=== PATIENT | female | born 1955 | race Native Hawaiian/Other Pacific Islander ===

== ENCOUNTER 2016-04-19 08:43 | Outpatient (CLI) | payer OTHER ==
[~2016-04-19 08:43] MED LIST: ACET5TAB36 PO; AMBIEN5 MG PO; ASPI-93 PO; B12 IJ; CIPRO500 MG PO; CLARITIN10 M1 PO; CYCL10TA35 PO; DEPO-ESTRADI5 MG/ML IM; DIAZ5TAB20 PO; DIAZEPAM5 MG PO; DICY20TA34 PO; FLOXIN OT; GLIM2TAB PO; HYDR4TAB12 PO; HYDR5TAB9 PO; LUNESTA3 MG OR; MAXIDE PO; METO50TA63 PO; METOPROLOL25 M1 PO; NEXIUM40 M1 OR; NEXIUM40 M1 PO; ONDA4TAB3 PO; OXYGEN NAS; PYRIDIUM100 MG PO; SCOP1.5D TD; SPIRIVA IN; TIOTCAP2 INH; TOPROL XL50 MG PO; XOPENEX HFA IN; XOPENEX1.25 MG/3 IN
== END 2016-04-19 21:26 | disposition home or self-care (01) ==
LOC: US 08:43
DX: K74.5 Biliary cirrhosis, unspecified (principal)

== ENCOUNTER 2016-06-26 16:41 | Outpatient (CLI) | payer OTHER | END 2016-06-26 19:18 | disposition home or self-care (01) | LOC: LABW 16:41 | DX: K74.69 Other cirrhosis of liver (principal) | CPT/HCPCS: 36415; 82140 ==

== ENCOUNTER 2017-04-09 12:03 | Inpatient (IN) | payer OTHER ==
[2017-04-09] VITALS (17 sets, daily range): BP systolic 86–124; BP diastolic 44–72; TEMP 97.7–98.9; Ht 165.1 cm; Wt 89.4 kg
[~2017-04-09] VITALS: Ht 165.1 cm; Wt 89.4 kg
[2017-04-09 12:40] LABS: PLATELET COUNT 129 K/uL (152-353)
[2017-04-09 13:16] LABS: PARTIAL THROMBOPLASTIN TIME 25.8 SECONDS (24.5-33.6)
[2017-04-09] MEDS ORDERED: MIRALAX3350 N1 OR ×2 (13:17)
[2017-04-09] MEDS ORDERED: FLONASE AL50 MCG/ACT ×2 (13:18)
[2017-04-09] MEDS ORDERED: POTASSIUM CHLO20 MEQ OR ×2 (13:19)
[2017-04-09] MEDS ORDERED: MORP10SO PO ×2 (13:20)
[2017-04-09] MEDS ORDERED: HALOPERIDOL2 MG PO ×2 (13:21)
[2017-04-09] MEDS ORDERED: FURO40TA93 PO ×2 (13:21)
[2017-04-09] MEDS ORDERED: LACTSYP31 PO ×2 (13:22)
[2017-04-09] MEDS ORDERED: ALBU0.5N13 IN ×2 (13:24)
[2017-04-10] VITALS (17 sets, daily range): BP systolic 65–131; BP diastolic 32–55; TEMP 98–98.8
[2017-04-10 03:21] LABS: PLATELET COUNT 125 K/uL (152-353)
[2017-04-10 05:42] LABS: POTASSIUM 2.8 mmol/L (3.6-5.2)
[2017-04-11 05:55] LABS: PLATELET COUNT 133 K/uL (152-353)
[2017-04-11 06:07] LABS: POTASSIUM 3.9 mmol/L (3.6-5.2)
[2017-04-11 12:00] VITALS: BP 92/39; TEMP 98
[2017-04-11 16:00] VITALS: BP 111/52; TEMP 98
[2017-04-11 20:00] VITALS: BP 130/56; TEMP 98.7
[2017-04-12] VITALS: BP 136/67; TEMP 99.1
[2017-04-12 04:00] VITALS: BP 96/40; TEMP 98.9
[2017-04-12 05:20] LABS: PLATELET COUNT 112 K/uL (152-353)
[2017-04-12 05:48] LABS: POTASSIUM 4.2 mmol/L (3.6-5.2)
[2017-04-12 08:00] VITALS: BP 99/52; TEMP 98.7
[2017-04-12 12:00] VITALS: BP 103/52; TEMP 98.5
== END 2017-04-12 14:05 | disposition home or self-care (01) | DRG 433 ==
LOC: ED 12:03 → ICU 14:30 → MED/SURG 04-10 21:45
PROVIDERS: Family Medicine; ADMIT Emergency Medicine
DX: K74.69 Other cirrhosis of liver (principal); E87.1 Hypo-osmolality and hyponatremia; K72.10 Chronic hepatic failure without coma; E11.649 Type 2 diabetes mellitus with hypoglycemia without coma; R40.4 Transient alteration of awareness; D64.89 Other specified anemias; J44.9 Chronic obstructive pulmonary disease, unspecified; J45.998 Other asthma; R94.8 Abnormal results of function studies of other organs and systems; Z91.81 History of falling; M54.2 Cervicalgia; K59.09 Other constipation; F41.8 Other specified anxiety disorders; G89.29 Other chronic pain
CPT/HCPCS: 36415; 51702; 80053; 80307; 80320; 81000; 82140; 82550; 82553; 82962; 83605; 83735; 84443; 84484; 85027; 85610; 85730; 93005; 94760; 96374; 96375; 99285; J2175; J2405

== ENCOUNTER 2017-04-15 09:58 | Inpatient (IN) | payer OTHER ==
[~2017-04-15 09:58] MED LIST changes: +ALBU0.5N13 IN; +FLONASE AL50 MCG/ACT; +FURO40TA93 PO; +HALOPERIDOL2 MG PO; +LACTSYP31 PO; +MIRALAX3350 N1 OR; +MORP10SO PO; +POTASSIUM CHLO20 MEQ OR
== END 2017-05-09 09:59 | disposition still patient (30) ==
LOC: PAVB 09:58
PROVIDERS: ADMIT Family Medicine

== ENCOUNTER 2017-04-15 19:01 | Outpatient (CLI) | payer OTHER | END 2017-04-15 20:44 | disposition home or self-care (01) | LOC: LAB 19:01 | DX: I10 Essential (primary) hypertension (principal); K70.30 Alcoholic cirrhosis of liver without ascites; E11.65 Type 2 diabetes mellitus with hyperglycemia; J44.9 Chronic obstructive pulmonary disease, unspecified; C16.2 Malignant neoplasm of body of stomach | CPT/HCPCS: 87081 ==

== ENCOUNTER 2017-04-16 06:17 | Outpatient (CLI) | payer OTHER | END 2017-04-16 19:02 | disposition home or self-care (01) | LOC: LAB 06:17 | DX: E11.9 Type 2 diabetes mellitus without complications (principal) | CPT/HCPCS: 83036 ==

== ENCOUNTER 2017-04-17 09:06 | Outpatient (CLI) | payer OTHER ==
[2017-04-17 09:34] LABS: PLATELET COUNT 119 K/uL (152-353)
[2017-04-17 09:46] LABS: POTASSIUM 3.3 mmol/L (3.6-5.2)
== END 2017-04-17 19:37 | disposition home or self-care (01) ==
LOC: LAB 09:06
PROVIDERS: Family Medicine
DX: I10 Essential (primary) hypertension (principal); K70.30 Alcoholic cirrhosis of liver without ascites; E11.65 Type 2 diabetes mellitus with hyperglycemia; J44.9 Chronic obstructive pulmonary disease, unspecified
CPT/HCPCS: 80053; 82140; 83036; 85027

== ENCOUNTER 2017-04-22 18:18 | Outpatient (CLI) | payer OTHER | END 2017-04-22 22:06 | disposition home or self-care (01) | LOC: LAB 18:18 | DX: K72.90 Hepatic failure, unspecified without coma (principal) | CPT/HCPCS: 36415; 82140 ==

== ENCOUNTER 2017-04-29 04:28 | Outpatient (CLI) | payer OTHER | END 2017-04-29 19:38 | disposition home or self-care (01) | LOC: LAB 04:28 | DX: K74.60 Unspecified cirrhosis of liver (principal) | CPT/HCPCS: 36415; 82140 ==

== ENCOUNTER 2017-05-09 11:03 | Inpatient (IN) | payer OTHER | END 2017-06-06 09:23 | disposition still patient (30) | LOC: PAVB 11:03 | PROVIDERS: ADMIT Family Medicine ==

== ENCOUNTER 2017-06-06 10:24 | Inpatient (IN) | payer OTHER | END 2017-07-07 08:00 | disposition still patient (30) | LOC: PAVB 10:24 | PROVIDERS: ADMIT Family Medicine ==

== ENCOUNTER 2017-06-15 12:37 | Outpatient (CLI) | payer OTHER | END 2017-06-15 21:12 | disposition home or self-care (01) | LOC: LAB 12:37 | DX: R30.0 Dysuria (principal); R35.0 Frequency of micturition | CPT/HCPCS: 81000; 87077; 87086; 87088; 87186 ==

== ENCOUNTER 2017-07-07 09:00 | Inpatient (IN) | payer OTHER | END 2017-08-06 09:08 | disposition still patient (30) | LOC: PAVB 09:00 | PROVIDERS: ADMIT Family Medicine ==

== ENCOUNTER 2017-08-06 10:07 | Inpatient (IN) | payer OTHER | END 2017-09-06 08:56 | disposition still patient (30) | LOC: PAVB 10:07 | PROVIDERS: ADMIT Family Medicine ==

== ENCOUNTER 2017-09-06 09:53 | Inpatient (IN) | payer OTHER ==
[~2017-09-06 09:53] MED LIST changes: +ALBU90AE13 INH; +GLIM4TAB PO; +METOPROLOL25 M1 OR; +NEXIUM20 M1 PO
== END 2017-10-06 15:02 | disposition still patient (30) ==
LOC: PAVB 09:53
PROVIDERS: ADMIT Family Medicine

== ENCOUNTER 2017-10-06 15:51 | Inpatient (IN) | payer OTHER | END 2017-11-06 08:00 | disposition still patient (30) | LOC: PAVB 15:51 | PROVIDERS: ADMIT Family Medicine ==

== ENCOUNTER 2017-10-11 07:40 | Outpatient (CLI) | payer OTHER | END 2017-10-11 19:04 | disposition home or self-care (01) | LOC: LAB 07:40 | DX: E11.9 Type 2 diabetes mellitus without complications (principal) | CPT/HCPCS: 82140; 83036 ==

== ENCOUNTER 2017-11-06 09:00 | Inpatient (IN) | payer OTHER | END 2017-12-07 10:21 | disposition still patient (30) | LOC: PAVB 09:00 | PROVIDERS: ADMIT Family Medicine ==

== ENCOUNTER 2017-11-12 05:44 | Outpatient (CLI) | payer OTHER | END 2017-11-12 19:01 | disposition home or self-care (01) | LOC: LAB 05:44 | DX: K74.60 Unspecified cirrhosis of liver (principal) | CPT/HCPCS: 36415; 82140 ==

== ENCOUNTER 2017-12-07 10:32 | Inpatient (IN) | payer OTHER | END 2018-01-06 09:37 | disposition still patient (30) | LOC: PAVB 10:32 | PROVIDERS: ADMIT Family Medicine ==

== ENCOUNTER 2017-12-12 05:38 | Outpatient (CLI) | payer OTHER | END 2017-12-12 23:15 | disposition home or self-care (01) | LOC: LAB 05:38 | DX: K74.60 Unspecified cirrhosis of liver (principal) | CPT/HCPCS: 36415; 82140 ==

== ENCOUNTER 2017-12-29 12:46 | Emergency (ER) | payer OTHER ==
[~2017-12-29] VITALS: Ht 165.1 cm; Wt 90.7 kg
[2017-12-29 12:46] VITALS: TEMP 98.6
[2017-12-29 17:45] VITALS: BP 140/61
== END 2017-12-29 17:45 ==
LOC: ED 12:46
PROC: 0T9B70Z Drainage of Bladder with Drainage Device, Via Natural or Artificial Opening (ICD-10-PCS; principal; 2017-12-29)
DX: S42.294A Other nondisplaced fracture of upper end of right humerus, initial encounter for closed fracture (principal); S02.2XXA Fracture of nasal bones, initial encounter for closed fracture; W01.0XXA Fall on same level from slipping, tripping and stumbling without subsequent striking against object, initial encounter; Y92.129 Unspecified place in nursing home as the place of occurrence of the external cause
CPT/HCPCS: 36415; 51702; 96374; 96375; 99284; J2175; J2405

== ENCOUNTER 2018-01-05 22:04 | Outpatient (CLI) | payer OTHER | END 2018-01-05 23:00 | disposition home or self-care (01) | LOC: RAD 22:04 | DX: S60.212A Contusion of left wrist, initial encounter (principal); S50.12XA Contusion of left forearm, initial encounter; S40.011A Contusion of right shoulder, initial encounter; W19.XXXA Unspecified fall, initial encounter; Y93.89 Activity, other specified; Y92.89 Other specified places as the place of occurrence of the external cause ==

== ENCOUNTER 2018-01-06 12:22 | Inpatient (IN) | payer OTHER | END 2018-02-06 08:51 | disposition still patient (30) | LOC: PAVB 12:22 | PROVIDERS: ADMIT Family Medicine ==

== ENCOUNTER 2018-01-12 14:07 | Outpatient (CLI) | payer OTHER | END 2018-01-12 19:48 | disposition home or self-care (01) | LOC: RAD 14:07 | DX: S42.201A Unspecified fracture of upper end of right humerus, initial encounter for closed fracture (principal); X58.XXXA Exposure to other specified factors, initial encounter; Y93.89 Activity, other specified; Y92.89 Other specified places as the place of occurrence of the external cause ==

== ENCOUNTER 2018-01-14 13:57 | Outpatient (CLI) | payer OTHER | END 2018-01-14 22:44 | disposition home or self-care (01) | LOC: LAB 13:57 | DX: R10.9 Unspecified abdominal pain (principal) | CPT/HCPCS: 81000 ==

== ENCOUNTER 2018-01-22 13:00 | Outpatient (CLI) | payer OTHER | END 2018-01-22 19:24 | disposition home or self-care (01) | LOC: RAD 13:00 | DX: M54.5 Low back pain (principal) ==

== ENCOUNTER 2018-01-29 15:30 | Outpatient (CLI) | payer OTHER | END 2018-01-29 21:01 | disposition home or self-care (01) | LOC: RAD 15:30 | DX: M85.80 Other specified disorders of bone density and structure, unspecified site (principal); S32.029A Unspecified fracture of second lumbar vertebra, initial encounter for closed fracture ==

== ENCOUNTER 2018-02-02 17:32 | Outpatient (CLI) | payer OTHER | END 2018-02-02 19:38 | disposition home or self-care (01) | LOC: RAD 17:32 | DX: S42.201A Unspecified fracture of upper end of right humerus, initial encounter for closed fracture (principal) ==

== ENCOUNTER 2018-02-06 09:17 | Inpatient (IN) | payer OTHER | END 2018-03-08 08:36 | disposition still patient (30) | LOC: PAVB 09:17 | PROVIDERS: ADMIT Family Medicine ==

== ENCOUNTER 2018-02-11 04:03 | Outpatient (CLI) | payer OTHER | END 2018-02-11 22:10 | disposition home or self-care (01) | LOC: LAB 04:03 | DX: K74.60 Unspecified cirrhosis of liver (principal) | CPT/HCPCS: 36415; 82140 ==

== ENCOUNTER 2018-03-08 08:48 | Inpatient (IN) | payer OTHER | END 2018-04-08 10:21 | disposition still patient (30) | LOC: PAVB 08:48 → PAVA 03-09 10:00 | PROVIDERS: ADMIT Family Medicine | CPT/HCPCS: 82140 ==

== ENCOUNTER 2018-03-14 04:20 | Outpatient (CLI) | payer OTHER | END 2018-03-14 22:49 | disposition home or self-care (01) | LOC: LAB 04:20 | DX: K74.60 Unspecified cirrhosis of liver (principal) ==

== ENCOUNTER 2018-04-08 10:54 | Inpatient (IN) | payer OTHER | END 2018-05-09 14:16 | disposition still patient (30) | LOC: PAVA 10:54 | PROVIDERS: ADMIT Family Medicine ==

== ENCOUNTER 2018-04-30 03:52 | Outpatient (CLI) | payer OTHER | END 2018-04-30 22:03 | disposition home or self-care (01) | LOC: LAB 03:52 | DX: K74.60 Unspecified cirrhosis of liver (principal); Z79.899 Other long term (current) drug therapy | CPT/HCPCS: 36415; 82140; 83036 ==

== ENCOUNTER 2018-05-03 03:22 | Outpatient (CLI) | payer OTHER | END 2018-05-03 19:28 | disposition home or self-care (01) | LOC: LAB 03:22 | DX: N39.0 Urinary tract infection, site not specified (principal); R30.0 Dysuria | CPT/HCPCS: 81000; 87077; 87086; 87088; 87185 ==

== ENCOUNTER 2018-05-08 08:46 | Outpatient (CLI) | payer OTHER | END 2018-05-08 23:16 | disposition home or self-care (01) | LOC: US 08:46 → MAMMO 10:00 → US 23:16 | DX: N63.20 Unspecified lump in the left breast, unspecified quadrant (principal); R14.0 Abdominal distension (gaseous) ==

== ENCOUNTER 2018-05-09 14:29 | Inpatient (IN) | payer OTHER ==
[2018-05-29] MEDS ORDERED: MYSOLINE50 MG PO (01:40)
[2018-05-29] MEDS ORDERED: TRAMADOL HYDROC50 MG PO (01:46)
[2018-05-29] MEDS ORDERED: VITAMIN C 500 M1 TAB PO (01:47)
[2018-05-29] MEDS ORDERED: CETI10TA PO (01:48)
[2018-05-29] MEDS ORDERED: XANAX XR1 MG PO (01:50)
[2018-05-29] MEDS ORDERED: HYDROXYZINE HYD25 MG PO (01:51)
[2018-05-29] MEDS ORDERED: DILAUDID8 MG PO (01:54)
== END 2018-06-06 09:14 | disposition still patient (30) ==
LOC: PAVA 14:29
PROVIDERS: ADMIT Family Medicine

== ENCOUNTER 2018-05-13 10:12 | Outpatient (CLI) | payer OTHER ==
[~2018-05-13] VITALS: Ht 30.5 cm; Wt 0.5 kg
== END 2018-05-13 19:47 | disposition home or self-care (01) ==
LOC: US 10:12
DX: N63.20 Unspecified lump in the left breast, unspecified quadrant (principal)

== ENCOUNTER 2018-05-15 04:52 | Outpatient (CLI) | payer OTHER | END 2018-05-15 22:19 | LOC: LAB 04:52 | DX: K74.60 Unspecified cirrhosis of liver (principal) | CPT/HCPCS: 82140 ==

== ENCOUNTER 2018-05-28 19:14 | Outpatient (CLI) | payer OTHER ==
[2018-05-28 20:26] LABS: PLATELET COUNT 92 K/uL (152-353)
[2018-05-28 20:45] LABS: POTASSIUM 3.3 mmol/L (3.6-5.2)
[2018-05-29] MEDS ORDERED: MYSOLINE50 MG PO (01:40)
[2018-05-29] MEDS ORDERED: TRAMADOL HYDROC50 MG PO (01:46)
[2018-05-29] MEDS ORDERED: VITAMIN C 500 M1 TAB PO (01:47)
[2018-05-29] MEDS ORDERED: CETI10TA PO (01:48)
[2018-05-29] MEDS ORDERED: XANAX XR1 MG PO (01:50)
[2018-05-29] MEDS ORDERED: HYDROXYZINE HYD25 MG PO (01:51)
[2018-05-29] MEDS ORDERED: DILAUDID8 MG PO (01:54)
== END 2018-05-28 23:59 | disposition home or self-care (01) ==
LOC: LAB 19:14
PROVIDERS: Family Medicine
DX: D64.9 Anemia, unspecified (principal); R05 Cough
CPT/HCPCS: 80053; 84439; 84443; 85027

== ENCOUNTER 2018-05-28 21:58 | Inpatient (IN) | payer OTHER ==
[~2018-05-28] VITALS: Ht 165.1 cm; Wt 84.1 kg
[2018-05-28 22:31] VITALS: BP 156/74; TEMP 98.6
[2018-05-29] MEDS ORDERED: MYSOLINE50 MG PO (01:40)
[2018-05-29] MEDS ORDERED: TRAMADOL HYDROC50 MG PO (01:46)
[2018-05-29] MEDS ORDERED: VITAMIN C 500 M1 TAB PO (01:47)
[2018-05-29] MEDS ORDERED: CETI10TA PO (01:48)
[2018-05-29] MEDS ORDERED: XANAX XR1 MG PO (01:50)
[2018-05-29] MEDS ORDERED: HYDROXYZINE HYD25 MG PO (01:51)
[2018-05-29] MEDS ORDERED: DILAUDID8 MG PO (01:54)
[2018-05-29 02:36] VITALS: BP 163/78; TEMP 97.9; Ht 165.1 cm; Wt 84.1 kg
[2018-05-29 04:17] VITALS: BP 163/79; TEMP 97.9
[2018-05-29 08:00] VITALS: BP 113/60; TEMP 99.8
[2018-05-29 12:00] VITALS: BP 130/66; TEMP 98.7
[2018-05-29 16:00] VITALS: BP 133/62; TEMP 98.2
[2018-05-29 20:23] VITALS: BP 117/57; TEMP 98.5
[2018-05-30 00:22] VITALS: BP 120/47; TEMP 98.3
[2018-05-30 04:00] VITALS: BP 140/64; TEMP 98.2
[2018-05-30 08:00] VITALS: BP 133/62; TEMP 98.1
[2018-05-30 12:00] VITALS: BP 132/64; TEMP 98.5
== END 2018-05-30 15:15 | DRG 638 ==
LOC: ED 21:58 → MED/SURG 22:50
PROVIDERS: ADMIT Family Medicine
DX: E11.65 Type 2 diabetes mellitus with hyperglycemia (principal); J44.0 Chronic obstructive pulmonary disease with (acute) lower respiratory infection; E86.0 Dehydration; I10 Essential (primary) hypertension; C50.919 Malignant neoplasm of unspecified site of unspecified female breast; J20.9 Acute bronchitis, unspecified; K74.69 Other cirrhosis of liver
CPT/HCPCS: 81002; 82947; 96360; 96372; 99284; J0696; J1815

== ENCOUNTER 2018-06-03 09:18 | Outpatient (CLI) | payer OTHER ==
[~2018-06-03 09:18] MED LIST changes: +CETI10TA PO; +DILAUDID8 MG PO; +HYDROXYZINE HYD25 MG PO; +MYSOLINE50 MG PO; +TRAMADOL HYDROC50 MG PO; +VITAMIN C 500 M1 TAB PO; +XANAX XR1 MG PO
== END 2018-06-03 19:23 | disposition home or self-care (01) ==
LOC: US 09:18
DX: R14.0 Abdominal distension (gaseous) (principal)

== ENCOUNTER 2018-06-06 09:46 | Inpatient (IN) | payer OTHER | END 2018-07-07 07:55 | disposition still patient (30) | LOC: PAVA 09:46 | PROVIDERS: ADMIT Family Medicine ==

== ENCOUNTER 2018-06-16 03:02 | Outpatient (CLI) | payer OTHER | END 2018-06-16 19:23 | disposition home or self-care (01) | LOC: LAB 03:02 | DX: K74.60 Unspecified cirrhosis of liver (principal) | CPT/HCPCS: 36415; 82140 ==

== ENCOUNTER 2018-07-07 08:32 | Inpatient (IN) | payer OTHER | END 2018-08-06 09:39 | disposition still patient (30) | LOC: PAVA 08:32 | PROVIDERS: ADMIT Family Medicine ==

== ENCOUNTER 2018-07-16 18:17 | Emergency (ER) | payer OTHER ==
[~2018-07-16] VITALS: Ht 165.1 cm; Wt 91.7 kg
[2018-07-16 19:42] LABS: PLATELET COUNT 126 K/uL (152-353)
[2018-07-16 19:59] LABS: POTASSIUM 3.3 mmol/L (3.6-5.2)
[2018-07-16 20:47] VITALS: BP 136/51; TEMP 98.8
== END 2018-07-16 20:45 | disposition home or self-care (01) ==
LOC: ED 18:17
PROVIDERS: Emergency Medicine
DX: E72.20 Disorder of urea cycle metabolism, unspecified (principal); Z98.890 Other specified postprocedural states
CPT/HCPCS: 36415; 80053; 82140; 85027; 96360; 99284

== ENCOUNTER 2018-08-03 22:10 | Outpatient (CLI) | payer OTHER ==
[2018-08-03 23:18] LABS: PLATELET COUNT 106 K/uL (152-353)
[2018-08-04 05:32] LABS: POTASSIUM 4.1 mmol/L (3.6-5.2)
== END 2018-08-03 23:30 | disposition home or self-care (01) ==
LOC: LAB 22:10
PROVIDERS: Family Medicine
DX: D64.89 Other specified anemias (principal); C79.9 Secondary malignant neoplasm of unspecified site
CPT/HCPCS: 36415; 80053; 82607; 82746; 83540; 85027; 85044

== ENCOUNTER 2018-08-06 04:27 | Outpatient (CLI) | payer OTHER | END 2018-08-06 23:14 | disposition home or self-care (01) | LOC: LAB 04:27 | DX: K74.69 Other cirrhosis of liver (principal) | CPT/HCPCS: 36415; 82140 ==

== ENCOUNTER 2018-08-06 10:51 | Inpatient (IN) | payer OTHER ==
[2018-08-19] MEDS ORDERED: LEVEMIR FL100 UNIT/M SC (17:55)
[2018-08-19] MEDS ORDERED: ALEN70TA19 PO (18:01)
[2018-08-19] MEDS ORDERED: MELATONIN10 M1 PO (18:06)
[2018-08-19] MEDS ORDERED: OMEP40CA PO (18:08)
[2018-08-19] MEDS ORDERED: CETI10TA PO (18:10)
[2018-08-19] MEDS ORDERED: FERROUS SULF325 M1 PO (18:12)
[2018-08-19] MEDS ORDERED: OXYC20TA3 PO (18:13)
[2018-08-19] MEDS ORDERED: PROAIR HFA108 MCG/AC PO (18:15)
[2018-08-19] MEDS ORDERED: ALPR0.5T24 PO (18:16)
[2018-08-19] MEDS ORDERED: ALBUTEROL2 MG/5 ML PO (18:23)
[2018-08-19] MEDS ORDERED: BANOPHEN25 M1 PO (18:24)
[2018-08-19] MEDS ORDERED: TUSSIN ADU100 MG/5 M PO (18:25)
[2018-08-19] MEDS ORDERED: HYDROMORPHONE H PO (18:27)
[2018-08-19] MEDS ORDERED: HYDROXYZINE HYD25 MG PO (18:28)
[2018-08-19] MEDS ORDERED: ALUMSUS6 PO (18:29)
[2018-08-19] MEDS ORDERED: ALBUSOL INH (18:30)
== END 2018-09-06 08:13 | disposition still patient (30) ==
LOC: PAVA 10:51
PROVIDERS: ADMIT Family Medicine
DX: Z51.89 Encounter for other specified aftercare (principal)

== ENCOUNTER 2018-08-19 15:05 | Inpatient (IN) | payer OTHER ==
[~2018-08-19] VITALS: Ht 165.1 cm; Wt 94.6 kg
[2018-08-19 17:08] VITALS: BP 152/76; TEMP 98.3; Ht 165.1 cm; Wt 94.6 kg
[2018-08-19 17:12] LABS: PLATELET COUNT 88 K/uL (152-353); POTASSIUM 3.9 mmol/L (3.6-5.2)
[2018-08-19] MEDS ORDERED: LEVEMIR FL100 UNIT/M SC (17:55)
[2018-08-19] MEDS ORDERED: ALEN70TA19 PO (18:01)
[2018-08-19] MEDS ORDERED: MELATONIN10 M1 PO (18:06)
[2018-08-19] MEDS ORDERED: OMEP40CA PO (18:08)
[2018-08-19] MEDS ORDERED: CETI10TA PO (18:10)
[2018-08-19] MEDS ORDERED: FERROUS SULF325 M1 PO (18:12)
[2018-08-19] MEDS ORDERED: OXYC20TA3 PO (18:13)
[2018-08-19] MEDS ORDERED: PROAIR HFA108 MCG/AC PO (18:15)
[2018-08-19] MEDS ORDERED: ALPR0.5T24 PO (18:16)
[2018-08-19] MEDS ORDERED: ALBUTEROL2 MG/5 ML PO (18:23)
[2018-08-19] MEDS ORDERED: BANOPHEN25 M1 PO (18:24)
[2018-08-19] MEDS ORDERED: TUSSIN ADU100 MG/5 M PO (18:25)
[2018-08-19] MEDS ORDERED: HYDROMORPHONE H PO (18:27)
[2018-08-19] MEDS ORDERED: HYDROXYZINE HYD25 MG PO (18:28)
[2018-08-19] MEDS ORDERED: ALUMSUS6 PO (18:29)
[2018-08-19] MEDS ORDERED: ALBUSOL INH (18:30)
[2018-08-19 20:00] VITALS: BP 132/49; TEMP 97.9
[2018-08-20] VITALS: BP 122/64; TEMP 98.5
[2018-08-20 04:00] VITALS: BP 122/50; TEMP 97.7
[2018-08-20 05:51] LABS: PLATELET COUNT 86 K/uL (152-353)
[2018-08-20 06:09] LABS: POTASSIUM 4.3 mmol/L (3.6-5.2)
[2018-08-20 08:00] VITALS: BP 99/59; TEMP 98.1
[2018-08-20 12:00] VITALS: BP 125/73; TEMP 98
[2018-08-20 16:00] VITALS: BP 137/62; TEMP 97.9
[2018-08-20 19:55] VITALS: BP 148/56; TEMP 98.1
[2018-08-21] VITALS (7 sets, daily range): BP systolic 96–145; BP diastolic 55–78; TEMP 98.1–98.4
[2018-08-21 04:45] LABS: PLATELET COUNT 83 K/uL (152-353)
[2018-08-21 04:58] LABS: POTASSIUM 4.2 mmol/L (3.6-5.2)
[2018-08-22 04:00] VITALS: BP 149/75; TEMP 98.4
[2018-08-22 08:00] VITALS: BP 138/50; TEMP 98.1
[2018-08-22 12:00] VITALS: BP 131/66; TEMP 98.6
== END 2018-08-22 17:30 | DRG 442 ==
LOC: MED/SURG 15:05
PROVIDERS: ADMIT Family Medicine
DX: K76.6 Portal hypertension (principal); N39.0 Urinary tract infection, site not specified; R10.11 Right upper quadrant pain; K76.0 Fatty (change of) liver, not elsewhere classified; D50.8 Other iron deficiency anemias; E11.9 Type 2 diabetes mellitus without complications; I10 Essential (primary) hypertension; C50.919 Malignant neoplasm of unspecified site of unspecified female breast; D69.6 Thrombocytopenia, unspecified; F41.8 Other specified anxiety disorders; J44.9 Chronic obstructive pulmonary disease, unspecified
CPT/HCPCS: 36415; 80053; 81000; 82140; 82150; 82728; 83540; 83690; 85027; 85610; 87086; 87088; 94760; J0696; J1170; J1200; J1815; J1885; J2060; J2405; J3410; J3490

== ENCOUNTER 2018-09-06 08:26 | Inpatient (IN) | payer OTHER ==
[~2018-09-06 08:26] MED LIST changes: +ALBUSOL INH; +ALBUTEROL2 MG/5 ML PO; +ALEN70TA19 PO; +ALPR0.5T24 PO; +ALUMSUS6 PO; +BANOPHEN25 M1 PO; +FERROUS SULF325 M1 PO; +HYDROMORPHONE H PO; +LEVEMIR FL100 UNIT/M SC; +MELATONIN10 M1 PO; +OMEP40CA PO; +OXYC20TA3 PO; +PROAIR HFA108 MCG/AC PO; +TUSSIN ADU100 MG/5 M PO
== END 2018-10-06 08:30 | disposition still patient (30) ==
LOC: PAVA 08:26
PROVIDERS: ADMIT Family Medicine

== ENCOUNTER 2018-09-08 05:09 | Outpatient (CLI) | payer OTHER | END 2018-09-08 19:08 | disposition home or self-care (01) | LOC: LAB 05:09 | DX: K74.69 Other cirrhosis of liver (principal) | CPT/HCPCS: 36415; 82140 ==

== ENCOUNTER 2018-09-12 18:02 | Outpatient (CLI) | payer OTHER | END 2018-09-12 21:44 | disposition home or self-care (01) | LOC: RAD 18:02 | DX: M25.551 Pain in right hip (principal); R07.81 Pleurodynia; Z91.81 History of falling ==

== ENCOUNTER 2018-09-29 03:29 | Outpatient (CLI) | payer OTHER ==
[2018-09-29 06:49] LABS: PLATELET COUNT 76 K/uL (152-353)
[2018-09-29 06:59] LABS: POTASSIUM 4.3 mmol/L (3.6-5.2)
== END 2018-09-29 23:20 | disposition home or self-care (01) ==
LOC: LAB 03:29
PROVIDERS: Family Medicine
DX: C50.312 Malignant neoplasm of lower-inner quadrant of left female breast (principal)
CPT/HCPCS: 36415; 80053; 85027; 85044

== ENCOUNTER 2018-10-06 04:22 | Outpatient (CLI) | payer OTHER | END 2018-10-06 23:31 | disposition home or self-care (01) | LOC: LAB 04:22 | DX: E11.9 Type 2 diabetes mellitus without complications (principal); K74.69 Other cirrhosis of liver | CPT/HCPCS: 36415; 82140; 83036 ==

== ENCOUNTER 2018-10-06 09:15 | Inpatient (IN) | payer OTHER | END 2018-11-06 09:07 | disposition still patient (30) | LOC: PAVA 09:15 | PROVIDERS: ADMIT Family Medicine ==

== ENCOUNTER 2018-10-09 18:04 | Outpatient (CLI) | payer OTHER | END 2018-10-09 19:48 | disposition home or self-care (01) | LOC: LAB 18:04 | DX: N39.0 Urinary tract infection, site not specified (principal) | CPT/HCPCS: 81000; 87077; 87086; 87088; 87185; 87186 ==

== ENCOUNTER 2018-11-06 04:53 | Outpatient (CLI) | payer OTHER | END 2018-11-06 20:13 | disposition home or self-care (01) | LOC: LAB 04:53 | DX: K74.69 Other cirrhosis of liver (principal) | CPT/HCPCS: 82140 ==

== ENCOUNTER 2018-11-06 10:05 | Inpatient (IN) | payer OTHER | END 2018-12-07 15:58 | disposition still patient (30) | LOC: PAVA 10:05 | PROVIDERS: ADMIT Family Medicine ==

== ENCOUNTER 2018-12-07 16:11 | Inpatient (IN) | payer OTHER | END 2019-01-06 08:05 | disposition still patient (30) | LOC: PAVA 16:11 | PROVIDERS: ADMIT Family Medicine ==

== ENCOUNTER 2018-12-09 05:48 | Outpatient (CLI) | payer OTHER | END 2018-12-09 22:47 | disposition home or self-care (01) | LOC: LAB 05:48 | DX: K74.69 Other cirrhosis of liver (principal) | CPT/HCPCS: 82140 ==

== ENCOUNTER 2018-12-31 14:18 | Outpatient (CLI) | payer OTHER | END 2018-12-31 20:34 | disposition home or self-care (01) | LOC: RAD 14:18 | DX: R09.1 Pleurisy (principal) ==

== ENCOUNTER 2019-01-06 09:10 | Inpatient (IN) | payer OTHER | END 2019-02-06 08:58 | disposition still patient (30) | LOC: PAVA 09:10 | PROVIDERS: ADMIT Family Medicine ==

== ENCOUNTER 2019-01-07 05:37 | Outpatient (CLI) | payer OTHER ==
[2019-01-07 06:05] LABS: PLATELET COUNT 106 K/uL (152-353)
[2019-01-07 06:51] LABS: POTASSIUM 4.2 mmol/L (3.6-5.2)
== END 2019-01-07 23:46 | disposition home or self-care (01) ==
LOC: LAB 05:37
PROVIDERS: Family Medicine
DX: K74.69 Other cirrhosis of liver (principal); E11.9 Type 2 diabetes mellitus without complications
CPT/HCPCS: 80053; 82140; 83036; 84439; 84443; 84550; 85027

== ENCOUNTER 2019-01-21 14:15 | Outpatient (CLI) | payer OTHER | END 2019-01-21 19:12 | disposition home or self-care (01) | LOC: LAB 14:15 | DX: R30.0 Dysuria (principal) | CPT/HCPCS: 81000; 87077; 87086; 87088; 87185; 87186 ==

== ENCOUNTER 2019-01-30 17:52 | Outpatient (CLI) | payer OTHER | END 2019-01-30 21:49 | disposition home or self-care (01) | LOC: LAB 17:52 | DX: R82.998 Other abnormal findings in urine (principal) | CPT/HCPCS: 81000 ==

== ENCOUNTER 2019-02-06 05:47 | Outpatient (CLI) | payer OTHER | END 2019-02-06 22:10 | disposition home or self-care (01) | LOC: LAB 05:47 | DX: K74.69 Other cirrhosis of liver (principal) | CPT/HCPCS: 82140 ==

== ENCOUNTER 2019-02-06 10:56 | Inpatient (IN) | payer OTHER | END 2019-03-08 08:00 | disposition still patient (30) | LOC: PAVA 10:56 | PROVIDERS: ADMIT Family Medicine ==

== ENCOUNTER 2019-03-08 09:00 | Inpatient (IN) | payer OTHER | END 2019-04-08 07:59 | disposition still patient (30) | LOC: PAVA 09:00 | PROVIDERS: ADMIT Family Medicine | CPT/HCPCS: 81000 ==

== ENCOUNTER 2019-03-10 05:56 | Outpatient (CLI) | payer OTHER | END 2019-03-10 20:13 | disposition home or self-care (01) | LOC: LAB 05:56 | DX: K74.69 Other cirrhosis of liver (principal) | CPT/HCPCS: 82140 ==

== ENCOUNTER 2019-03-22 12:53 | Outpatient (CLI) | payer OTHER | END 2019-03-22 21:08 | disposition home or self-care (01) | LOC: LABW | DX: R82.998 Other abnormal findings in urine (principal) ==

== ENCOUNTER 2019-03-23 06:56 | Outpatient (CLI) | payer OTHER | END 2019-03-23 22:52 | disposition home or self-care (01) | LOC: LAB 06:56 | DX: K72.90 Hepatic failure, unspecified without coma (principal); K74.69 Other cirrhosis of liver; E11.9 Type 2 diabetes mellitus without complications; H81.09 Meniere's disease, unspecified ear; R82.998 Other abnormal findings in urine | CPT/HCPCS: 36415; 82140 ==

== ENCOUNTER 2019-04-08 06:03 | Outpatient (CLI) | payer OTHER | END 2019-04-08 22:01 | disposition home or self-care (01) | LOC: LAB 06:03 | DX: K74.69 Other cirrhosis of liver (principal); E11.9 Type 2 diabetes mellitus without complications | CPT/HCPCS: 36415; 82140 ==

== ENCOUNTER 2019-04-08 08:25 | Inpatient (IN) | payer OTHER | END 2019-05-09 09:31 | disposition still patient (30) | LOC: PAVA 08:25 | PROVIDERS: ADMIT Family Medicine ==

== ENCOUNTER 2019-04-09 06:52 | Outpatient (CLI) | payer OTHER | END 2019-04-09 19:40 | disposition home or self-care (01) | LOC: LAB 06:52 | DX: E11.9 Type 2 diabetes mellitus without complications (principal) | CPT/HCPCS: 83036 ==

== ENCOUNTER 2019-05-09 06:06 | Outpatient (CLI) | payer OTHER | END 2019-05-09 20:38 | disposition home or self-care (01) | LOC: LAB 06:06 | DX: K74.69 Other cirrhosis of liver (principal) | CPT/HCPCS: 82140 ==

== ENCOUNTER 2019-05-09 09:46 | Inpatient (IN) | payer OTHER | END 2019-06-07 12:45 | disposition still patient (30) | LOC: PAVA 09:46 | PROVIDERS: ADMIT Family Medicine ==

== ENCOUNTER 2019-06-07 13:01 | Inpatient (IN) | payer OTHER | END 2019-07-08 08:58 | disposition still patient (30) | LOC: PAVA 13:01 | PROVIDERS: ADMIT Family Medicine ==

== ENCOUNTER 2019-06-09 05:04 | Outpatient (CLI) | payer OTHER | END 2019-06-09 19:32 | disposition home or self-care (01) | LOC: LAB 05:04 | DX: K74.69 Other cirrhosis of liver (principal) | CPT/HCPCS: 82140 ==

== ENCOUNTER 2019-07-08 09:21 | Inpatient (IN) | payer OTHER | END 2019-08-07 08:03 | disposition still patient (30) | LOC: PAVA 09:21 | PROVIDERS: ADMIT Family Medicine ==

== ENCOUNTER 2019-07-10 06:14 | Outpatient (CLI) | payer OTHER ==
[2019-07-10 08:18] LABS: PLATELET COUNT 61 K/uL (152-353)
[2019-07-10 08:35] LABS: POTASSIUM 4.4 mmol/L (3.6-5.2)
== END 2019-07-10 23:29 | disposition home or self-care (01) ==
LOC: LAB 06:14
PROVIDERS: Family Medicine
DX: K74.69 Other cirrhosis of liver (principal); E11.9 Type 2 diabetes mellitus without complications; I10 Essential (primary) hypertension
CPT/HCPCS: 80053; 80061; 82140; 83036; 84439; 84443; 84550; 85027

== ENCOUNTER 2019-07-14 13:53 | Outpatient (CLI) | payer OTHER | END 2019-07-14 19:11 | disposition home or self-care (01) | LOC: LABW 13:53 | DX: R05 Cough (principal); R50.9 Fever, unspecified | CPT/HCPCS: 87502; 87635; U0002 ==

== ENCOUNTER → 2019-07-14 | Outpatient (CLI) | payer OTHER | LOC: LAB 22:05 | DX: N39.0 Urinary tract infection, site not specified (principal) | CPT/HCPCS: 81000; 87086; 87088 ==

== ENCOUNTER 2019-08-07 08:39 | Inpatient (IN) | payer OTHER | END 2019-09-07 08:11 | disposition still patient (30) | LOC: PAVA 08:39 | PROVIDERS: ADMIT Family Medicine | CPT/HCPCS: 87635; U0002 ==

== ENCOUNTER 2019-08-10 06:19 | Outpatient (CLI) | payer OTHER | END 2019-08-10 19:21 | disposition home or self-care (01) | LOC: LAB 06:19 | DX: K74.69 Other cirrhosis of liver (principal) | CPT/HCPCS: 82140 ==

== ENCOUNTER 2019-08-24 17:02 | Outpatient (CLI) | payer OTHER | END 2019-08-24 19:45 | disposition home or self-care (01) | LOC: RAD 17:02 | DX: M79.602 Pain in left arm (principal) ==

== ENCOUNTER 2019-08-24 19:10 | Emergency (ER) | payer OTHER ==
[~2019-08-24] VITALS: Ht 165.1 cm; Wt 94.3 kg
[2019-08-24 19:45] LABS: PLATELET COUNT 58 K/uL (152-353)
[2019-08-24 19:55] LABS: POTASSIUM 3.9 mmol/L (3.6-5.2)
[2019-08-24 21:35] VITALS: BP 140/80; TEMP 99.1
== END 2019-08-24 21:45 | disposition short-term general hospital (02) ==
LOC: ED 19:16
PROVIDERS: Family Medicine
PROC: 0T9B70Z Drainage of Bladder with Drainage Device, Via Natural or Artificial Opening (ICD-10-PCS; principal; 2019-08-24)
DX: S42.392A Other fracture of shaft of left humerus, initial encounter for closed fracture (principal); E11.9 Type 2 diabetes mellitus without complications; Z79.4 Long term (current) use of insulin; Z79.899 Other long term (current) drug therapy; W18.39XA Other fall on same level, initial encounter; Y92.128 Other place in nursing home as the place of occurrence of the external cause
CPT/HCPCS: 51702; 80053; 81000; 83036; 85027; 85610; 87077; 87086; 87088; 87186; 99283

== ENCOUNTER 2019-09-07 08:26 | Inpatient (IN) | payer OTHER | END 2019-10-07 08:26 | disposition still patient (30) | LOC: PAVA 08:26 | PROVIDERS: ADMIT Family Medicine | DX: S42.352D Displaced comminuted fracture of shaft of humerus, left arm, subsequent encounter for fracture with routine healing (principal); M62.81 Muscle weakness (generalized); R26.2 Difficulty in walking, not elsewhere classified; Z74.1 Need for assistance with personal care; D69.6 Thrombocytopenia, unspecified; H81.09 Meniere's disease, unspecified ear; M19.90 Unspecified osteoarthritis, unspecified site; K74.60 Unspecified cirrhosis of liver | CPT/HCPCS: 83630; 87015; 87045; 87324; 87328; 87329; 87449; 87635; 87899; U0002 ==

== ENCOUNTER 2019-10-07 09:38 | Inpatient (IN) | payer OTHER | END 2019-11-07 08:23 | disposition still patient (30) | LOC: PAVA 09:38 | PROVIDERS: ADMIT Family Medicine | DX: S42.352D Displaced comminuted fracture of shaft of humerus, left arm, subsequent encounter for fracture with routine healing (principal); M62.81 Muscle weakness (generalized); R26.2 Difficulty in walking, not elsewhere classified; Z74.1 Need for assistance with personal care; D69.6 Thrombocytopenia, unspecified; H81.09 Meniere's disease, unspecified ear; M19.90 Unspecified osteoarthritis, unspecified site; K74.60 Unspecified cirrhosis of liver | CPT/HCPCS: 82140; 82306; 83036 ==

== ENCOUNTER 2019-10-08 17:11 | Outpatient (CLI) | payer OTHER | END 2019-10-08 20:49 | disposition home or self-care (01) | LOC: LAB 17:11 | DX: E72.29 Other disorders of urea cycle metabolism (principal); E55.9 Vitamin D deficiency, unspecified | CPT/HCPCS: 82140; 82306 ==

== ENCOUNTER 2019-10-12 12:23 | Emergency (ER) | payer OTHER ==
[~2019-10-12] VITALS: Ht 165.1 cm; Wt 94.3 kg
[2019-10-12 14:25] LABS: PLATELET COUNT 183 K/uL (152-353)
[2019-10-12 14:34] LABS: PARTIAL THROMBOPLASTIN TIME 25.4 SECONDS (24.5-33.6)
[2019-10-12 14:36] LABS: POTASSIUM 4.1 mmol/L (3.6-5.2)
[2019-10-12 18:13] VITALS: BP 128/65; TEMP 98.7
== END 2019-10-12 18:13 ==
LOC: ED 12:23
PROVIDERS: General Practice
DX: R10.84 Generalized abdominal pain (principal); M79.602 Pain in left arm; Z98.890 Other specified postprocedural states
CPT/HCPCS: 36415; 80053; 81000; 83735; 85027; 85610; 85730; 96360; 99284

== ENCOUNTER 2019-11-07 08:54 | Inpatient (IN) | payer OTHER | END 2019-12-08 10:50 | disposition still patient (30) | LOC: PAVA 08:54 | PROVIDERS: ADMIT Family Medicine | DX: Z47.89 Encounter for other orthopedic aftercare (principal); S42.352D Displaced comminuted fracture of shaft of humerus, left arm, subsequent encounter for fracture with routine healing; R26.89 Other abnormalities of gait and mobility; M62.81 Muscle weakness (generalized); E11.36 Type 2 diabetes mellitus with diabetic cataract; E11.65 Type 2 diabetes mellitus with hyperglycemia; K74.60 Unspecified cirrhosis of liver; G47.00 Insomnia, unspecified; F41.9 Anxiety disorder, unspecified | CPT/HCPCS: 87635; U0003 ==

== ENCOUNTER 2019-11-09 08:10 | Outpatient (CLI) | payer OTHER | END 2019-11-09 22:34 | disposition home or self-care (01) | LOC: LAB 08:10 | DX: K74.69 Other cirrhosis of liver (principal) | CPT/HCPCS: 82140 ==

== ENCOUNTER 2019-11-17 16:32 | Outpatient (CLI) | payer OTHER | END 2019-11-17 21:01 | disposition home or self-care (01) | LOC: RAD 16:32 | DX: M79.602 Pain in left arm (principal) ==

== ENCOUNTER 2019-11-21 13:37 | Outpatient (CLI) | payer OTHER | END 2019-11-21 18:51 | disposition home or self-care (01) | LOC: RAD 13:37 | DX: R07.81 Pleurodynia (principal); M79.602 Pain in left arm ==

== ENCOUNTER 2019-11-27 18:31 | Outpatient (CLI) | payer OTHER ==
[2019-11-27 18:51] LABS: PLATELET COUNT 112 K/uL (152-353)
[2019-11-27 18:57] LABS: POTASSIUM 4.3 mmol/L (3.6-5.2)
== END 2019-11-27 23:59 | disposition home or self-care (01) ==
LOC: LABW 18:31
PROVIDERS: Family Medicine
DX: R68.89 Other general symptoms and signs (principal); R79.89 Other specified abnormal findings of blood chemistry; B95.62 Methicillin resistant Staphylococcus aureus infection as the cause of diseases classified elsewhere; K74.69 Other cirrhosis of liver
CPT/HCPCS: 80048; 85027; 85610; 85730; 87070

== ENCOUNTER 2019-12-08 11:23 | Inpatient (IN) | payer OTHER ==
[2019-12-08 06:48] LABS: PLATELET COUNT 92 K/uL (152-353)
== END 2020-01-07 09:33 | disposition still patient (30) ==
LOC: PAVA 11:23
PROVIDERS: ADMIT Family Medicine
DX: Z47.89 Encounter for other orthopedic aftercare (principal); S42.352D Displaced comminuted fracture of shaft of humerus, left arm, subsequent encounter for fracture with routine healing; R26.89 Other abnormalities of gait and mobility; M62.81 Muscle weakness (generalized); E11.36 Type 2 diabetes mellitus with diabetic cataract; E11.65 Type 2 diabetes mellitus with hyperglycemia; K74.60 Unspecified cirrhosis of liver; G47.00 Insomnia, unspecified; F41.9 Anxiety disorder, unspecified
CPT/HCPCS: 82140; 85027

== ENCOUNTER 2019-12-15 06:36 | Outpatient (CLI) | payer OTHER ==
[2019-12-15 06:51] LABS: PLATELET COUNT 118 K/uL (152-353)
== END 2019-12-15 19:18 | disposition home or self-care (01) ==
LOC: LAB 06:36
PROVIDERS: Family Medicine
DX: Z79.899 Other long term (current) drug therapy (principal)
CPT/HCPCS: 85027

== ENCOUNTER 2019-12-22 08:56 | Outpatient (CLI) | payer OTHER ==
[2019-12-22 10:10] LABS: PLATELET COUNT 100 K/uL (152-353)
== END 2019-12-22 19:05 | disposition home or self-care (01) ==
LOC: LAB 08:56 → RAD 08:56 → LAB 19:05
PROVIDERS: Orthopaedic Surgery
DX: M79.602 Pain in left arm (principal)
CPT/HCPCS: 85027

== ENCOUNTER 2019-12-29 07:47 | Outpatient (CLI) | payer OTHER ==
[2019-12-29 08:25] LABS: PLATELET COUNT 98 K/uL (152-353)
== END 2019-12-29 20:21 | disposition home or self-care (01) ==
LOC: LAB 07:47
PROVIDERS: Family Medicine
DX: Z79.899 Other long term (current) drug therapy (principal)
CPT/HCPCS: 85027

== ENCOUNTER 2020-01-05 07:57 | Outpatient (CLI) | payer OTHER ==
[2020-01-05 09:59] LABS: PLATELET COUNT 104 K/uL (152-353)
== END 2020-01-05 19:26 | disposition home or self-care (01) ==
LOC: LAB 07:57
PROVIDERS: Family Medicine
DX: D64.89 Other specified anemias (principal)
CPT/HCPCS: 85027

== ENCOUNTER 2020-01-07 07:32 | Outpatient (CLI) | payer OTHER ==
[2020-01-07 08:21] LABS: PLATELET COUNT 81 K/uL (152-353)
[2020-01-07 08:47] LABS: POTASSIUM 4.1 mmol/L (3.6-5.2)
== END 2020-01-07 19:38 | disposition home or self-care (01) ==
LOC: LAB 07:32
PROVIDERS: Family Medicine
DX: E11.9 Type 2 diabetes mellitus without complications (principal); K74.69 Other cirrhosis of liver; I10 Essential (primary) hypertension; E55.9 Vitamin D deficiency, unspecified
CPT/HCPCS: 80053; 82140; 82306; 83036; 84439; 84443; 84550; 85007; 85027

== ENCOUNTER 2020-01-07 10:50 | Inpatient (IN) | payer OTHER ==
[2020-01-13] MEDS ORDERED: DOXEPIN HCL100 MG PO (08:17)
[2020-01-13] MEDS ORDERED: FURO20TA67 PO ×2 (10:13→10:14)
[2020-01-13] MEDS ORDERED: MV-ONE PO (10:17)
[2020-01-13] MEDS ORDERED: ROPINIROLE0.25 MG PO (10:24)
[2020-01-13] MEDS ORDERED: ZINC220 MG PO (10:25)
[2020-01-13] MEDS ORDERED: CETI10TA PO (10:27)
[2020-01-13] MEDS ORDERED: SPIR50TA8 PO (10:33)
[2020-01-13] MEDS ORDERED: LEVEMIR FL100 UNIT/M SC (11:36)
[2020-01-13] MEDS ORDERED: LACTULOSE10 GM/15 M PO (11:40)
[2020-01-13] MEDS ORDERED: NEURONTIN 100M100 MG PO (11:42)
[2020-01-13] MEDS ORDERED: IPRAAER INH (11:43)
[2020-01-13] MEDS ORDERED: OXYC5TAB24 PO (11:47)
== END 2020-02-07 08:00 | disposition still patient (30) ==
LOC: PAVA 10:50
PROVIDERS: ADMIT Family Medicine

== ENCOUNTER 2020-01-12 11:23 | Outpatient (CLI) | payer OTHER ==
[2020-01-12 11:41] LABS: PLATELET COUNT 88 K/uL (152-353)
[2020-01-13] MEDS ORDERED: DOXEPIN HCL100 MG PO (08:17)
[2020-01-13] MEDS ORDERED: FURO20TA67 PO ×2 (10:13→10:14)
[2020-01-13] MEDS ORDERED: MV-ONE PO (10:17)
[2020-01-13] MEDS ORDERED: ROPINIROLE0.25 MG PO (10:24)
[2020-01-13] MEDS ORDERED: ZINC220 MG PO (10:25)
[2020-01-13] MEDS ORDERED: CETI10TA PO (10:27)
[2020-01-13] MEDS ORDERED: SPIR50TA8 PO (10:33)
[2020-01-13] MEDS ORDERED: LEVEMIR FL100 UNIT/M SC (11:36)
[2020-01-13] MEDS ORDERED: LACTULOSE10 GM/15 M PO (11:40)
[2020-01-13] MEDS ORDERED: NEURONTIN 100M100 MG PO (11:42)
[2020-01-13] MEDS ORDERED: IPRAAER INH (11:43)
[2020-01-13] MEDS ORDERED: OXYC5TAB24 PO (11:47)
== END 2020-01-13 00:41 | disposition home or self-care (01) ==
LOC: LAB 11:23
PROVIDERS: Family Medicine
DX: D64.89 Other specified anemias (principal)
CPT/HCPCS: 85027

== ENCOUNTER 2020-01-12 20:39 | Inpatient (IN) | payer OTHER ==
[~2020-01-12] VITALS: Ht 177.8 cm; Wt 93.0 kg
[2020-01-12 21:12] VITALS: BP 131/74; TEMP 98.7
[2020-01-12 21:35] LABS: PLATELET COUNT 103 K/uL (152-353)
[2020-01-12 21:43] LABS: SODIUM 131 mmol/L (136-145)
[2020-01-12 21:47] LABS: PARTIAL THROMBOPLASTIN TIME 20.6 SECONDS (24.5-33.6)
[2020-01-12 22:00] VITALS: BP 130/70
[2020-01-12 23:00] VITALS: BP 121/61
[2020-01-13] VITALS (20 sets, daily range): BP systolic 104–159; BP diastolic 48–96; TEMP 97.5–99; Ht 177.8 cm; Wt 93.0 kg
[2020-01-13 07:53] LABS: PLATELET COUNT 84 K/uL (152-353)
[2020-01-13] MEDS ORDERED: DOXEPIN HCL100 MG PO (08:17)
[2020-01-13 08:23] LABS: POTASSIUM 3.7 mmol/L (3.6-5.2)
[2020-01-13] MEDS ORDERED: FURO20TA67 PO ×2 (10:13→10:14)
[2020-01-13] MEDS ORDERED: MV-ONE PO (10:17)
[2020-01-13] MEDS ORDERED: ROPINIROLE0.25 MG PO (10:24)
[2020-01-13] MEDS ORDERED: ZINC220 MG PO (10:25)
[2020-01-13] MEDS ORDERED: CETI10TA PO (10:27)
[2020-01-13] MEDS ORDERED: SPIR50TA8 PO (10:33)
[2020-01-13] MEDS ORDERED: LEVEMIR FL100 UNIT/M SC (11:36)
[2020-01-13] MEDS ORDERED: LACTULOSE10 GM/15 M PO (11:40)
[2020-01-13] MEDS ORDERED: NEURONTIN 100M100 MG PO (11:42)
[2020-01-13] MEDS ORDERED: IPRAAER INH (11:43)
[2020-01-13] MEDS ORDERED: OXYC5TAB24 PO (11:47)
[2020-01-14] VITALS (8 sets, daily range): BP systolic 101–136; BP diastolic 45–66; TEMP 98.9–99.6
[2020-01-14 06:43] LABS: PLATELET COUNT 91 K/uL (152-353)
[2020-01-14 06:54] LABS: POTASSIUM 3.6 mmol/L (3.6-5.2)
== END 2020-01-14 11:00 | DRG 443 ==
LOC: ED 20:39 → ICU 01-13 03:15
PROVIDERS: Family Medicine; ADMIT Internal Medicine Endocrinology, Diabetes & Metabolism
DX: K72.90 Hepatic failure, unspecified without coma (principal); D75.89 Other specified diseases of blood and blood-forming organs; E11.9 Type 2 diabetes mellitus without complications; J44.9 Chronic obstructive pulmonary disease, unspecified; I10 Essential (primary) hypertension; M81.8 Other osteoporosis without current pathological fracture; G89.4 Chronic pain syndrome
CPT/HCPCS: 43754; 80053; 81000; 82140; 84484; 85027; 85379; 85610; 85730; 87635; 93005; 96374; 96375; 99285; J1940; J2060; J3490; U0003

== ENCOUNTER 2020-01-26 09:58 | Outpatient (CLI) | payer OTHER ==
[~2020-01-26 09:58] MED LIST changes: +DOXEPIN HCL100 MG PO; +FURO20TA67 PO; +IPRAAER INH; +LACTULOSE10 GM/15 M PO; +MV-ONE PO; +NEURONTIN 100M100 MG PO; +OXYC5TAB24 PO; +ROPINIROLE0.25 MG PO; +SPIR50TA8 PO; +ZINC220 MG PO
== END 2020-01-26 22:30 | disposition home or self-care (01) ==
LOC: RAD 09:58
DX: M79.602 Pain in left arm (principal)

== ENCOUNTER 2020-02-06 08:00 | Outpatient (CLI) | payer OTHER | END 2020-02-06 17:00 | LOC: CCM 08:00 | PROVIDERS: ATTEND Nurse Practitioner Family | DX: J44.9 Chronic obstructive pulmonary disease, unspecified (principal); I10 Essential (primary) hypertension; E11.9 Type 2 diabetes mellitus without complications | CPT/HCPCS: 99453; 99454 ==

== ENCOUNTER 2020-02-07 09:00 | Inpatient (IN) | payer OTHER | END 2020-03-08 08:35 | disposition still patient (30) | LOC: PAVA 09:00 | PROVIDERS: ADMIT Family Medicine; ATTEND Family Medicine ==

== ENCOUNTER 2020-02-09 12:52 | Outpatient (CLI) | payer OTHER | END 2020-02-09 23:36 | disposition home or self-care (01) | LOC: LAB 12:52 | DX: K74.69 Other cirrhosis of liver (principal) | CPT/HCPCS: 82140 ==

== ENCOUNTER 2020-02-18 07:47 | Outpatient (CLI) | payer OTHER | END 2020-02-18 20:52 | disposition home or self-care (01) | LOC: RAD 07:47 | PROVIDERS: ATTEND Family Medicine | DX: R07.81 Pleurodynia (principal) ==

== ENCOUNTER 2020-02-24 08:03 | Outpatient (CLI) | payer OTHER | END 2020-02-24 20:20 | disposition home or self-care (01) | LOC: RESP 08:03 → LAB 08:03 | PROVIDERS: ATTEND Family Medicine | DX: R07.89 Other chest pain (principal) | CPT/HCPCS: 36415; 82550; 84484; 93005 ==

== ENCOUNTER 2020-03-08 09:08 | Inpatient (IN) | payer OTHER | END 2020-04-08 08:28 | disposition still patient (30) | LOC: PAVA 09:08 | PROVIDERS: ADMIT Family Medicine; ATTEND Family Medicine ==

== ENCOUNTER 2020-03-29 16:00 | Outpatient (CLI) | payer OTHER | END 2020-03-29 18:53 | disposition home or self-care (01) | LOC: RAD 16:00 | PROVIDERS: ATTEND Family Medicine | DX: M25.551 Pain in right hip (principal); M54.5 Low back pain; W19.XXXA Unspecified fall, initial encounter ==

== ENCOUNTER 2020-04-08 08:50 | Inpatient (IN) | payer OTHER | END 2020-04-19 22:30 | disposition E | LOC: PAVA 08:50 | PROVIDERS: ADMIT Family Medicine; ATTEND Family Medicine ==